=== PATIENT | male | born 2000 | race Caucasian/White ===

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

== ENCOUNTER 2018-02-02 02:09 | Emergency (ER) | payer OTHER ==
[2018-02-02] MEDS ORDERED: OXcarbazepine TAB(*) 300 MG PO ONE (02:54)
[2018-02-02] MEDS ORDERED: levETIRAcetam TAB* 500 MG PO ONE (02:54)
[2018-02-02 04:06] VITALS: BP 107/47
--- NOTE | 2018-02-02 06:23 | PN ---
Progress Note - Progress Note Date of Service: 02/02/18 Note: Patient visiting friend in [facility] when he had a seizure and LOC and hit head on floor. CAT team called. Mentating appropriately. Vitals WNL. Glucose >100. Stated he left his medication in his mother's car and did not take last evenings dose. Recommended eval in the ER. Patient returned from ER and had another seizure, nursing called and I spoke with Dr. Burris who agreed to send him back to the ER.
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
== END 2018-02-02 04:07 | disposition home or self-care (01) ==
LOC: ED 02:09
DX: R56.9 Unspecified convulsions (principal); F90.9 Attention-deficit hyperactivity disorder, unspecified type; F17.210 Nicotine dependence, cigarettes, uncomplicated
CPT/HCPCS: 99282; A9270-GY

== ENCOUNTER 2018-02-02 06:40 | Emergency (ER) | payer OTHER ==
[2018-02-02] MEDS ORDERED: levETIRAcetam TAB* 500 MG PO ONE (07:09)
[2018-02-02] MEDS ORDERED: OXcarbazepine TAB(*) 300 MG PO ONE (07:10)
[2018-02-02] MEDS ORDERED: NS 0.9% 1000 ML* 1,000 ML IV ONE (07:11)
[2018-02-02 07:43] LABS: Urine Appearance Clear; Urine Blood Negative (Negative); Urine Color Yellow; Urine Ketones Negative (Negative); Urine Protein Negative (Negative); Urine Specific Gravity 1.023 (1.010-1.030); Urine Urobilinogen Negative (Negative)
--- NOTE | 2018-02-02 07:43 | ED ---
Lam Bush Julia, scribed for Meli Yee MD on 02/02/18 at 0722 . Syncope/Near Syncope - HPI Summary HPI Summary: This patient is a 17 year old M presenting to [facility] due to a seizure occurring while visiting a friend in [place]. Patient has a history of epileptic seizures. He states he missed his regular dose of Keppra and Trileptal last night. Pt also states he was up all night. He states he usually takes five 500mg of Keppra twice a day and five 300mg of Trielptal twice a day. Medication dosage confirmed by patients mother via telephone. Pt states last seizure approx 2 months ago. Pt was in the ED approx 3 hours prior to this eval - pt was given 500mg keppra and 300mg Trileptal. Pt states he felt well and returned to OB floor upon discharge. Pt states he was sleeping in the bed when thinks he had another seizure. Patient denies biting tongue, injury, incontinence, CP, and SOB. Person is coming to hospital with pt's medications later this morning. I inquired if pt could get a ride home - mother is unable to drive him home, but he states he has a ride home from his girlfriends parents. Pt has appt with his neurologist in [place] on 02/12. Pt's medications reviewed this visit - History Of Current Complaint Chief Complaint: EDSeizure Time Seen by Provider: 02/02/18 06:56 Hx Obtained From: Patient, Family/Test Cell Technician Onset/Duration: Sudden Onset Context: Witnessed Associated Head Trauma: No Aggravating Factor(s): Other - medication non-compliance Alleviating Factor(s): Spontaneous Resolution, Other - medication Associated Signs And Symptoms: Negative Related History: Similar Episode/Dx as - epileptic seizures Frequency: Episodes x___ - 2, Episodes Lasting ____ (in Mins/Days/Weeks/Years) - Allergies/Home Medications Allergies/Adverse Reactions: Allergies Allergy/AdvReac Type Severity Reaction Status Date / Time No Known Allergies Allergy Verified 06/07/17 09:40 Home Medications: Home Medications OXcarbazepine TAB(*) [Trileptal 300 mg TAB(*)] 1,200 mg PO BID 02/02/18 [ History Confirmed 02/02/18] levETIRAcetam TAB* [Keppra TAB*] 2,000 mg PO BID 02/02/18 [History Confirmed ] PMH/Surg Hx/FS Hx/Imm Hx Endocrine/Hematology History: Denies: Hx Anticoagulant Therapy, Hx Blood Disorders, Hx Blood Transfusions, Hx Bone Marrow Disease, Hx Diabetes, Hx Systemic Lupus Erythematosus, Hx Sickle Cell Disease, Hx Thyroid Disease, Hx Anemia, Hx Unexplained Bleeding, Other Endocrine/Hematological Disorders Cardiovascular History: Denies: Hx Aneurysm, Hx Angina, Hx Angioplasty, Hx Auto Implanted Cardiovert Defib, Hx Cardiac Arrest, Hx Cardiomegaly, Hx Congenital Heart Disease, Hx Congestive Heart Failure, Hx Coronary Artery Disease, Hx Deep Vein Thrombosis, Hx Hypercholesterolemia, Hx Hypotension, Hx Hypertension, Hx Pacemaker/ICD, Hx Peripheral Vascular Disease, Hx Rheumatic Fever, Hx Syncope, Hx Valvular Heart Disease, Other Cardiovascular Problems/Disorders Respiratory History: Denies: Hx Asthma, Hx Chronic Bronchitis, Hx Chronic Obstructive Pulmonary Disease (COPD), Hx Cystic Fibrosis, Hx Lung Cancer, Hx Pleural Effusion, Hx Pneumonia, Hx Pulmonary Edema, Hx Pulmonary Embolism, Hx Seasonal Allergies, Hx Sleep Apnea, Other Respiratory Problems/Disorders GI History: Denies: Hx Cirrhosis, Hx Crohn's Disease, Hx Diverticulosis, Hx Gall Bladder Disease, Hx Gastroesophageal Reflux Disease, Hx Gastrointestinal Bleed, Hx Hiatal Hernia, Hx Irritable Bowel, Hx Jaundice, Hx Obstructive Bowel, Hx Ileostomy, Hx Pyloric Stenosis, Hx Ulcer, Other GI Disorders History: Denies: Hx Acute Renal Failure, Hx Benign Prostatic Hyperplasia, Hx Chronic Renal Failure, Hx Dialysis, Hx Kidney Infection, Hx Kidney Stones, Hx Renal Disease, Other Problems/Disorders Musculoskeletal History: Denies: Hx Arthritis, Hx Back Problems, Hx Bursitis, Hx Congenital Bone Abnormalities, Hx Fibromyalgia, Hx Gout, Hx Orthopedic Injury, Hx Osteoporosis, Hx Scoliosis, Hx Tendonitis, Other Musculoskeletal History Sensory History: Denies: Hx Cataracts, Hx Contacts or Glasses, Hx Eye Injury, Hx Eye Prosthesis, Hx Glaucoma, Hx Macular Degeneration, Hx Vision Problem, Hx Deafness , Hx Hearing Aid, Hx Hearing Problem, Other Sensory Impairments Opthamlomology History: Denies: Hx Cataracts, Hx Contacts or Glasses, Hx Eye Injury, Hx Eye Prosthesis, Hx Glaucoma, Hx Macular Degeneration, Hx Vision Problem, Other Sensory Impairments Neurological History: Reports: Hx Seizures Denies: Hx Dementia, Hx Developmental Delay, Hx Headaches, Hx Migraine, Hx Spinal Cord Injury, Hx Transient Ischemic Attacks (TIA), Other Neuro Impairments /Disorders Psychiatric History: Reports: Hx Attention Deficit Hyperactivity Disorder, Hx Community Mental Health Tx Denies: Hx Anxiety, Hx Eating Disorder, Hx Depression, Hx Panic Disorder, Hx Post Traumatic Stress Disorder, Hx Inpatient Treatment, Hx Schizophrenia, Hx Bipolar Disorder, Hx Suicide Attempt, Hx Substance Abuse, Other Psychiatric Issues/Disorders - Cancer History Hx Chemotherapy: No Hx Radiation Therapy: No - Surgical History Surgery Procedure, Year, and Place: tonsillectomy. adnoidectomy. bilateral ear tubes Hx Anesthesia Reactions: No Infectious Disease History: No Infectious Disease History: Denies: Hx Hepatitis, Hx Human Immunodeficiency Virus (HIV), Hx Tuberculosis , Traveled Outside the [place] in Last 30 Days - Family History Known Family History: Positive: Other - Depression Negative: Hypertension, Diabetes, Blood Disorder Family History: Depression - Social History Occupation: Unemployed Lives: With Family Alcohol Use: None Hx Substance Use: No Substance Use Type: Reports: Marijuana Substance Use Comment - Amount & Last Used: 05/17/2017 1100 Hx Tobacco Use: No Smoking Status (MU): Never Smoked Tobacco Review of Systems Constitutional: Negative Eyes: Negative ENT: Negative - tongue bite Negative: Chest Pain Negative: Shortness Of Breath Musculoskeletal: Negative - injury Neurological: Negative - incontinence, Other - seizure All Other Systems Reviewed And Are Negative: Yes Physical Exam Triage Information Reviewed: Yes Vital Signs On Initial Exam: Initial Vitals Temp Pulse Resp BP Pulse Ox 98.1 F 79 21 127/54 95 02/02/18 06:43 02/02/18 06:43 02/02/18 06:43 02/02/18 06:43 02/02/18 06:43 Vital Signs Reviewed: Yes Appearance: Positive: Well-Appearing, No Pain Distress, Well-Nourished Skin: Positive: Warm, Skin Color Reflects Adequate Perfusion, Dry Head/Face: Positive: Normal Head/Face Inspection Eyes: Positive: Normal, EOMI, SANDRA ENT: Positive: Normal ENT inspection, Hearing grossly normal, Pharynx normal, TMs normal Neck: Positive: Supple, Nontender, No Lymphadenopathy Respiratory/Lung Sounds: Positive: Clear to Auscultation, Breath Sounds Present , Decreased Breath Sounds Cardiovascular: Positive: Normal, RRR Abdomen Description: Positive: Nontender, No Organomegaly, Soft Bowel Sounds: Positive: Present Musculoskeletal: Positive: Normal, Strength/ROM Intact Neurological: Positive: Normal, Sensory/Motor Intact, Alert, Oriented to Person Place, Time, Other - pt texting, using phone without difficulty Psychiatric: Positive: Normal AVPU Assessment: Alert - Colleen Coma Scale Best Eye Response: 4 - Spontaneous Best Motor Response: 6 - Obeys Commands Best Verbal Response: 5 - Oriented Coma Scale Total: 15 Diagnostics - Vital Signs Vital Signs Temp Pulse Resp BP Pulse Ox 02/02/18 07:00 77 18 127/60 94 02/02/18 06:46 82 19 96 02/02/18 06:44 127/54 02/02/18 06:43 98.1 F 79 21 127/54 95 - Laboratory Result Diagrams: 02/02/18 07:29 Lab Statement: Any lab studies that have been ordered have been reviewed, and results considered in the medical decision making process. Re-Evaluation - Re-Evaluation 1 Re-Evaluation Time: 08:52 Change: Worse - Patient had another seizure with incontinence. Patient currently has no complaints. Patient will be given ativan. Pt without complaints. bmp wnl. Awaiting urine drug screen. Pt comfortable and in agreement with plan 2 Re-Evaluation Time: 10:30 Change: Improved - Pt is sleeping. 3 Re-Evaluation Time: 11:13 Comment: Patient's ride home has arrived. Patient will be discharged. Ambulatory, no complaints. reviewed with ride sedation, no driving, f/u with neurologist Course/Dx Assessment/Plan: pt presents for second time in 5 hours with a seizure - pt reports medication non-compliance, lack of sleep. Pt was treated with subtheraputic dose this morning - will give compliment of dose -confirmed with mother. will check labs, IVf, UDS. Encouarged pt to work to arrange ride home. will continue to monitor. pt comfortable and in agreement with plan - Diagnoses Provider Diagnoses: Seizure, Medical non-compliance Discharge - Sign-Out/Discharge Documenting (check all that apply): Discharge - Discharge Plan Condition: Stable Disposition: HOME Patient Education Materials: Recurrent Seizures in Adults (ED) Referrals: Jerrod Jane MD [Primary Care Provider] - Additional Instructions: - It is very important you take your medications for your seizures EXACTLY as prescribed - Stay well hydrated - drink plenty of non-alcoholic, non-caffinated beverages - Avoid illicit substances as these may increase your likelihood of a seizure - Do not drive, operate machinery, climb heights, swim, or participate in ant activities which may injure yourself or someone else should you have a seizure - You will likely be drowsy today - this is related to the medication you were given in the ED - keep your appointment as scheduled on February 12 with your neurologist - contact your neurologist with questions or concerns - Billing Disposition and Condition Condition: STABLE Disposition: HOME The documentation as recorded by the Lam neal Julia accurately reflects the service I personally performed and the decisions made by me, Meli Yee MD.
[2018-02-02 08:00] LABS: EGFR Non-African American 142.9 (>60)
[2018-02-02] MEDS ORDERED: LORazepam INJ* 2 MG/ML 1 ML VIAL IV PUSH ONE (08:54)
[2018-02-02 11:21] VITALS: BP 120/78
== END 2018-02-02 11:26 | disposition home or self-care (01) ==
LOC: ED 06:40
DX: G40.909 Epilepsy, unspecified, not intractable, without status epilepticus (principal); Z91.14 Patient's other noncompliance with medication regimen; F90.9 Attention-deficit hyperactivity disorder, unspecified type
CPT/HCPCS: 36415; 80048; 81003; 96374; 99283; A9270-GY; J2060

== ENCOUNTER 2019-11-02 19:42 | Emergency (ER) | payer SELFPAY ==
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
--- OUTSIDE RECORDS SUMMARY | 2019-11-02 20:19 | XMS REPORT | Summary of Care ---
:2000 Author Organization [facility] Address [address] [place] [address] Care Team Providers Name Role Phone Linh Hoff [employer] SUPERVISOR Primary Care Provider Reason for Visit Auth/Cert Status Reason Specialty Diagnoses / Procedures Referred By Contact Referred To Contact Diagnoses status epilepticus, intubated Status epilepticus Encounter Details Date Type Department Care Team Description 10/13/2019 - Hospital Encounter 09F NEUROSCIENCE [place] [address], [place] [id number] 10/14/2019 CRITICAL CARE Tri Carrasquillo MD [address], [place] [id number] [address] [place] [address] Allergies Active Allergy Reactions Severity Noted Date Comments Bee Venom Swelling 01/02/2016 documented as of this encounter (statuses as of 10/14/2019) Medications Medication Sig Dispensed Refills Start Date End Date Status oxcarbazepine Take 2 tablets 120 tablet 11 01/05/2016 Active (TRILEPTAL) 600 MG by mouth Two tablet Times Daily. tretinoin Apply 0 Active (RETIN-A) 0.025 % topically gel nightly loratadine Take 10 mg by 0 Active (CLARITIN) 10 MG mouth daily tablet Multiple Vitamin Take 1 tablet 0 Active (MULTIVITAMIN) by mouth daily tablet lamoTRIgine 25 MG Take 3 tablets 282 tablet 0 10/14/2019 11/20/19 Active Oral Tablet by mouth Two 20 (LaMICtal) Times Daily for 7 days, THEN 4 tablets Two Times Daily.. levetiracetam Take 2 tablets 120 tablet 11 01/05/2016 10/14/20 Discontinued (KEPPRA) 750 MG by mouth Two 19 (Stop Taking at tablet Times Daily. 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 documented as of this encounter Last Filed Vital Signs Vital Sign Reading Time Taken Comments Blood Pressure 123/58 10/14/2019 12:00 PM EST Pulse 67 10/14/2019 12:00 PM EST Temperature 36.5 10/14/2019 12:00 PM EST C (97.7 F) Respiratory Rate 20 10/14/2019 12:00 PM EST Oxygen Saturation 97% 10/14/2019 12:00 PM EST Inhaled Oxygen Concentration - - Weight 73 kg (160 lb 15 oz) 10/14/2019 6:00 AM EST Height 185.4 cm (6' 0.99") 10/13/2019 4:15 PM EST Body Mass Index 21.24 10/13/2019 4:15 PM EST documented in this encounter Discharge Instructions AttachmentsThe following attachments cannot be sent through Care Everywhere.How Seizures Affect the Body, Epilepsy ([place]i)Seizure, Recurrent (Adult) ([place]mani) Epilepsy, Discharge Instructions for ([place])documented in this encounter Progress Notes Fiorella Kuhn, RN - 10/14/2019 4:07 PM ESTPt discharged to home with girlfriend and girlfriends mother. IV D/Cd, pt refused to be transported by hospital staff and walked out. Pt given AVS and discharge instructions. Glo Gonzalez RRT - 10/13/2019 4:15 PM ESTPatient has a Positive cuff leak. Patient was successfully extubated to room air Loretta Perez RN - 10/13/2019 3:15 PM [id number]: Pt arrived to floor via EMS intubated. Pt bathed and placed on monitor. Pt on propofol, but paused for neuro exam. Awaiting orders. 1548: Pt extremely agitated, combative, and fighting vent. Neuro ICU at the / S. Decision to extubate made. RT at /. Extubated successful on room air. documented in this encounter Plan of Treatment Name Type Priority Associated Diagnoses Date/Time EEG Video Monitoring Neurology Routine 10/13/2019 3:41 PM EST Oxcarbazepine level Lab Routine 10/13/2019 4:10 PM EST Name Type Priority Associated Diagnoses Order Schedule EEG Video Monitoring Neurology Routine Continuous for 30 Days starting 10/13/2019 until 10/13/2019 Basic Metabolic Panel Lab Routine Daily for 5 Days starting 10/13/2019 until 10/17/2019, 1 completed CBC and Differential Lab Routine Daily for 30 Days starting 10/13/2019 until 11/11/2019, 2 completed Oxcarbazepine level Lab Routine Once for 1 Occurrences starting 10/13/2019 until 10/13/2019 Lamotrigine level Lab Routine AM Draw for 2 Weeks starting 10/15/2019 until 10/28/2019 Oxcarbazepine level Lab Routine AM Draw for 2 Weeks starting 10/15/2019 until 10/28/2019 Valproic acid level, Lab Routine AM Draw for 2 Weeks total starting 10/15/2019 until 10/28/2019 Health Maintenance Due Date Last Done Comments MMR Vaccines (1 of 1 - Standard 1999 series) Pneumococcal Vaccine: Pediatrics 2004 (0 to 5 Years) and At-Risk Patients (6 to 64 Years) (1 of 1 - PPSV23) DTaP,Tdap,and Td Vaccines (1 - 2005 Tdap) HIV Screening 2011 Varicella Vaccines (1 of 2 - 13+ 2011 2-dose series) HPV Vaccines (1 - Male 3-dose 2013 series) Influenza Vaccine 08/13/2019 Pneumococcal Vaccine: 65+ Years (1 2063 of 2 - PCV13) HIB Vaccines Aged Out No longer eligible based on patient's age to complete this topic Hepatitis A Vaccines Aged Out No longer eligible based on patient's age to complete this topic Hepatitis B Vaccines Aged Out No longer eligible based on patient's age to complete this topic IPV Vaccines Aged Out No longer eligible based on patient's age to complete this topic documented as of this encounter Procedures Procedure Name Priority Date/Time Associated Comments Diagnosis CT HEAD WITHOUT Pending 10/14/2019 11:31 Results for this CONTRAST 29245 Discharge AM EST procedure are in the results section. CBC AND DIFFERENTIAL Routine 10/14/2019 5:11 Results for this AM EST procedure are in the results section. CK Routine 10/14/2019 5:11 Results for this AM EST procedure are in the results section. BASIC METABOLIC Routine 10/14/2019 5:11 Results for this PANEL AM EST procedure are in the results section. LAMOTRIGINE Routine 10/13/2019 4:10 Results for this PM EST procedure are in the results section. DRUGS OF ABUSE, Routine 10/13/2019 4:10 Results for this URINE PM EST procedure are in the results section. CBC AND DIFFERENTIAL Routine 10/13/2019 4:10 Results for this PM EST procedure are in the results section. VALPROIC ACID LEVEL, Routine 10/13/2019 4:10 Results for this TOTAL PM EST procedure are in the results section. COMPREHENSIVE Routine 10/13/2019 4:10 Results for this METABOLIC PANEL PM EST procedure are in the results section. EXTUBATION Routine 10/13/2019 3:50 PM EST documented in this encounter Results CT Head without Contrast (10/14/2019 11:31 AM EST) Specimen Impressions Performed At IMPRESSION: [facility] No acute intracranial pathology. Slight cerebellar tonsillar ectopia Narrative Performed At INDICATION: Head trauma and seizures. [facility] TECHNIQUE: Contiguous axial CT images of the head from the base of the skull to the vertex without IV contrast. Automated dose lowering techniques and/or adjustment according to patient size were utilized for this exam. COMPARISON: MR brain without contrast 06/16/2016. FINDINGS: No intracranial hemorrhage or acute territorial infarction. No extra-axial collections or midline shift. The ventricular system is appropriate in size and configuration. Basal cisterns are patent. There is evidence of slight cerebellar tonsillar ectopia, unchanged from prior examination. No depressed calvarial fractures or scalp swelling. Paranasal sinuses and mastoid air cells are clear bilaterally. Procedure Note Interface, Received Via [facility] - 10/14/2019 12:18 PM EST INDICATION: Head trauma and seizures. TECHNIQUE: Contiguous axial CT images of the head from the base of the skull to the vertex without IV contrast. Automated dose lowering techniques and/or adjustment according to patient size were utilized for this exam. COMPARISON: MR brain without contrast 06/16/2016. FINDINGS: No intracranial hemorrhage or acute territorial infarction. No extra-axial collections or midline shift. The ventricular system is appropriate in size and configuration. Basal cisterns are patent. There is evidence of slight cerebellar tonsillar ectopia, unchanged from prior examination. No depressed calvarial fractures or scalp swelling. Paranasal sinuses and mastoid air cells are clear bilaterally. IMPRESSION: No acute intracranial pathology. Slight cerebellar tonsillar ectopia Performing Organization Address City/[facility]/Zipcode Phone Number [facility] [address] [place] [address] CK (10/14/2019 5:11 AM EST) CK 205 (H) 20 - 200 U/L [facility] Pathology Specimen Plasma Performing Organization Address [facility]/Zipcode Phone Number [facility] [address] [place] [address] [phone] [facility] [address] [place] [address] Pathology CBC and Differential (10/14/2019 5:11 AM EST) White Blood Cell 12.5 (H) 4 - 10 [facility] 10*3/uL [facility] Pathology Red Blood Cell 4.43 (L) 4.6 - 6.1 [facility] 10*6/uL [facility]ology Hemoglobin 13.3 (L) 13.5 - 18 [facility] g/dL [facility]ology Hematocrit 40.9 (L) 41 - 53 % [facility] Mean Cell Volume 92.2 80 - 96 fL [facility] Mean Cell Hemoglobin 29.9 27 - 33 pg [facility] Mean Cell Hgb Conc 32.4 32.0 - 36.0 [facility] g/dL Univ Clin Pathology Red Cell Dist Width 13.7 11.5 - 14.5 % [facility]ology Platelet Count 223 150 - 400 [facility] 10*3/uL Univ Clin Pathology Differential Type Automated Diff [facility]ology Neutrophil 69 % [facility] Pathology Lymphocyte 24 % [facility] Pathology Monocyte 6 % [facility] Pathology Eosinophil 1 % [facility] Pathology Basophil 0 % [facility] Abs Neutrophil 8.58 (H) 1.8 - 7.0 [facility] 10*3/uL Univ Clin Pathology Abs Lymphocyte 3.02 1.2 - 4.0 [facility] 10*3/uL Univ [facility] Pathology Abs Monocyte 0.78 0 - 0.8 [facility] 10*3/uL Univ Clin Pathology Abs Eosinophil 0.07 0 - 0.5 [facility] 10*3/uL Univ Clin Pathology Abs Basophil 0.03 0 - 0.2 [facility] Med 10*3/uL Univ Clin Pathology Nucleated Red Blood 0 0 - 0 [facility] Cells /100{WBCs} [facility]ology Specimen EDTA Whole Blood Performing Organization Address City/State/Zipcowv Phone Number [facility] [address] [place] [address] [phone] [facility] [address] [place] [address] Pathology Basic Metabolic Panel (10/14/2019 5:11 AM EST) Bicarbonate 22 22 - 29 mmol/L [facility]ology Chloride 106 98 - 107 mmol/L [facility]ology Creatinine 0.66 (L) 0.70 - 1.20 [facility] mg/dL Univ Clin Pathology Glucose 89 70 - 140 mg/dL [facility]ology Potassium 3.4 3.4 - 5.1 [facility] mmol/L Univ [facility] Pathology Sodium 139 136 - 145 [facility] mmol/L [facility] Pathology Blood Urea Nitrogen 7 6 - 20 mg/dL [facility]ology Anion Gap 11 8 - 15 mmol/L [facility]ology Osmolality, [place] 285 275 - 300 [facility] mosm/kg Univ Clin Pathology BUN/Cre Ratio 11 [facility] Calcium 8.8 8.6 - 10.0 [facility] mg/dL Univ Clin Pathology GFR Non >90 >60 [facility] 2009 CDK-EPI mL/min/1.73m2 Univ Clin Pathology GFR >90 >60 [facility] 2009 CKD-EPI mL/min/1.73m2 Univ Clin Pathology Specimen Plasma Performing Organization Address [facility] Services[facility] Phone Number [facility] [address] [place] [address] [facility] [address] [place] [address] Pathology Drugs Of Abuse, Urine (10/13/2019 4:10 PM EST) Amphetamine Negative Negative [facility] Cutoff 1000 [facility] Pathology Benzodiazepine Positive (A) Negative [facility] Comment: Cutoff 300 Med [facility] (NOTE) Pathology Positive results are presumptive and unconfirmed;confirmatory testing can be ordered at the [facility] at [address] [place] [address] [facility] within 5 days of collection. Cannabinoids Urine Positive (A) Negative [facility] Comment: Cutoff 50 [facility] (NOTE) Pathology Positive results are presumptive and unconfirmed;confirmatory testing can be ordered at the [facility] or [facility] within 5 days of collection. Cocaine Negative Negative [facility] Cutoff 300 [facility] Pathology Methadone (Dolophine) Negative Negative [facility] Cutoff 300 [facility] Pathology Opiates Negative Negative [facility] Cutoff 300 [facility] Pathology Oxycodone Negative Negative [facility] Cutoff 100 [facility] Pathology Fentanyl Negative Negative [facility] Cutoff 1 [facility] Pathology Drug Interpretation (NOTE) [facility] Comment: Med [facility] Results below the indicated cutoff (ng/mL), are reported as Pathology "Negative." Note: for medical purposes only; not valid for legal or employment testing. Specimen Urine Performing Organization Address City/[facility] Services[facility] Phone Number [facility] [address] [place] [address] [facility] [address] [place] [address] Pathology Lamotrigine level (10/13/2019 4:10 PM EST) Lamotrigine <2.0 (L) 3.0 - 14.0 ug/mL [facility] Pathology Specimen Serum Performing Organization Address City/[facility] Services[facility] Phone Number [facility] [address] [place] [address] [phone] [facility] [address] [place] [address] Pathology Valproic acid level, total (10/13/2019 4:10 PM EST) Valproic Acid <3 (L) 50 - 100 ug/ml [facility] Pathology Specimen Plasma Performing Organization Address City/[facility] Services[facility] Phone Number [facility] [address] [place] [address] [facility] [address] [place] [address] Pathology CBC and Differential (10/13/2019 4:10 PM EST) White Blood Cell 16.2 (H) 4 - 10 [facility] 10*3/uL Univ Clin Pathology Red Blood Cell 4.64 4.6 - 6.1 [facility] 10*6/uL Univ Clin Pathology Hemoglobin 13.8 13.5 - 18 [facility] g/dL Univ Clin Pathology Hematocrit 42.9 41 - 53 % [facility]ology Mean Cell Volume 92.5 80 - 96 fL [facility] Pathology Mean Cell Hemoglobin 29.8 27 - 33 pg [facility] Pathology Mean Cell Hgb Conc 32.2 32.0 - 36.0 [facility] g/dL Univ Clin Pathology Red Cell Dist Width 13.8 11.5 - 14.5 % [facility] Pathology Platelet Count 226 150 - 400 [facility] 10*3/uL Univ Clin Pathology Differential Type Automated Diff [facility] Pathology Neutrophil 80 % [facility] Pathology Lymphocyte 13 % [facility] Pathology Monocyte 7 % [facility] Pathology Eosinophil 0 % [facility] Pathology Basophil 0 % [facility] Pathology Abs Neutrophil 12.88 (H) 1.8 - 7.0 [facility] 10*3/uL Univ Clin Pathology Abs Lymphocyte 2.08 1.2 - 4.0 [facility] 10*3/uL Univ [facility] Pathology Abs Monocyte 1.15 (H) 0 - 0.8 [facility] 10*3/uL Univ Clin Pathology Abs Eosinophil 0.02 0 - 0.5 [facility] 10*3/uL Univ Clin Pathology Abs Basophil 0.05 0 - 0.2 [facility] 10*3/uL Univ Clin Pathology Nucleated Red Blood 0 0 - 0 [facility] Cells /100{WBCs} Univ [facility] Pathology Specimen EDTA Whole Blood Performing Organization Address City/State/Zipcode Phone Number [facility] [address] [place] [address] [facility] [address] [place] [address] Pathology Comprehensive Metabolic Panel (10/13/2019 4:10 PM EST) Albumin 4.6 3.5 - 5.2 g/dL [facility] Pathology Bilirubin, Total 0.3 <1.2 mg/dL [facility]ology Calcium 8.7 8.6 - 10.0 mg/dL [facility]ology Chloride 106 98 - 107 mmol/L [facility]ology Creatinine 0.71 0.70 - 1.20 [facility] mg/dL [facility] Pathology Glucose 103 70 - 140 mg/dL [facility] Pathology Alkaline Phosphatase 77 40 - 129 U/L [facility]ology Potassium 4.1 3.4 - 5.1 mmol/L [facility] Pathology Total Protein 6.6 6.4 - 8.3 g/dL [facility]ology Sodium 139 136 - 145 mmol/L [facility]ology AST/SGO 21 <40 U/L [facility] Pathology Blood Urea Nitrogen 8 6 - 20 mg/dL [facility] Pathology Osmolality, [place] 287 275 - 300 [facility] mosm/kg Univ Clin Pathology BUN/Cre Ratio 11 [facility] Pathology Bicarbonate 21 (L) 22 - 29 mmol/L [facility]ology ALT/SGP 19 <41 U/L [facility] Pathology Anion Gap 13 8 - 15 mmol/L [facility] Pathology A/G Ratio 2.3 [facility] Pathology GFR Non >90 >60 [facility] 2009 CDK-EPI mL/min/1.73m2 Univ Clin Pathology GFR >90 >60 [facility] 2008 CKD-EPI mL/min/1.73m2 Univ Clin Pathology Specimen Plasma Performing Organization Address City/State/Zipcode Phone Number [facility] [address] [place] [address] [facility] [address] [place] [address] Pathology documented in this encounter Visit Diagnoses Diagnosis Status epilepticus Epileptic grand mal status documented in this encounter Administered Medications Medication Order MAR Action Action Date Dose Rate Site acetaminophen (TYLENOL) tablet Given 10/14/2019 11:41 AM EST 650 mg 650 mg 650 mg, Oral, Every 6 hours PRN, Mild Pain (Pain Scale Score 1-3), Starting Mon10/14/19 at 1134, For 30 days, Maximum daily dose of acetaminophen is 3,000 mg from all sources in 24 hours., divalproex (DEPAKOTE) EC tablet 250 mg Given 10/14/2019 12:06 PM EST 250 mg 250 mg, Oral, Every 8 hours Standard (3 times per day), First dose on Mon10/14/19 at 1200, For 30 days, Do not crush or chew, enoxaparin sodium (LOVENOX) injection 40 mg 40 mg, Subcutaneous, Daily Standard, First dose on Mon10/15/19 at 0900, For 30 days lamoTRIgine (LaMICtal) tablet 75 mg Given 10/14/2019 6:30 AM EST 75 mg 75 mg, Oral, 2 Times Daily, First dose (after last reorder) on Mon10/13/19 at 1900, For 30 days Given 10/13/2019 9:29 PM EST 75 mg melatonin tablet 5 mg Given 10/13/2019 11:26 PM EST 5 mg 5 mg, Oral, Nightly, First dose (after last modification) on Mon10/13/19 at 2300, For 4 days OXcarbazepine (TRILEPTAL) tablet 1,200 mg Given 10/14/2019 8:40 AM EST 1,200 mg 1,200 mg, Oral, 2 Times Daily, First dose (after last reorder) on Mon10/13/19 at 2100, For 30 days Given 10/13/2019 9:28 PM EST 1,200 mg Medication Order MAR Action Action Date Dose Rate Site dexmedetomidine Rate/Dose Change 10/13/2019 7:00 0.5 mcg/kg/hr 9.2 mL/hr (PRECEDEX) in NaCl 0.9 % PM EST infusion 4 mcg/mL 0.1-1.5 mcg/kg/hr 73.7 kg (1.8425-27.6375 mL/hr, rounded to 1.8-27.6 mL/hr), Intravenous, at 1.8-27.6 mL/hr, Continuous, Starting 10/13/19 at 1615, For 30 days, Starting dose = 0.2 mcg/kg/hr Titrate to maintain RASS of -1 Titrate by 0.1-0.2 mcg/kg/hr Max Dose = 1.5 mcg/kg/hr Titrate down if RASS of -3, Rate/Dose Change 10/13/2019 6:28 PM EST 0.8 mcg/kg/hr 14.7 mL/hr Rate/Dose Change 10/13/2019 6:21 PM EST 1 mcg/kg/hr 18.4 mL/hr potassium chloride (K-DUR,KLOR-CON) Given 10/14/2019 8:39 AM EST 40 mEq dissolvable tablet 40 mEq 40 mEq, Oral, Once, 10/14/19 at 0715, For 1 dose, Do not crush or chew, valproate sodium (DEPACON) New Bag 10/14/2019 6:24 AM EST 250 mg 40 mL/hr injection 250 mg 250 mg, Intravenous, at 40 mL/hr, Every 6 hours Standard (4 times per day), First dose (after last reorder) on 10/13/19 at 1800, For 30 days, Administer at a rate of 1 g over 15 minutes. Suggested dilution 50 mL NS, New Bag 10/13/2019 11:27 PM EST 250 mg 40 mL/hr New Bag 10/13/2019 6:21 PM EST 250 mg 40 mL/hr documented in this encounter
[2019-11-02] MEDS ORDERED: OXcarbazepine TAB(*) 300 MG PO ONE (20:39)
[2019-11-02] MEDS ORDERED: lamoTRIgine TAB(*) 25 MG PO ONE (20:40)
[2019-11-02 21:59] VITALS: BP 129/82
== END 2019-11-02 21:53 | disposition home or self-care (01) ==
LOC: ED 19:42
DX: S01.511A Laceration without foreign body of lip, initial encounter (principal); S01.21XA Laceration without foreign body of nose, initial encounter; S09.92XA Unspecified injury of nose, initial encounter; M54.2 Cervicalgia; R07.81 Pleurodynia; V47.6XXA Car passenger injured in collision with fixed or stationary object in traffic accident, initial encounter; Y92.410 Unspecified street and highway as the place of occurrence of the external cause; G40.909 Epilepsy, unspecified, not intractable, without status epilepticus
CPT/HCPCS: 70450; 70486; 99283; A9270-GY